=== PATIENT | female | born 1985 | race Caucasian/White ===

== ENCOUNTER 2021-06-15 03:29 | Emergency (ER) | payer OTHER, MEDICAID, SELFPAY ==
--- NOTE | 2021-06-15 03:40 | ED_ITS ---
HPI - URI/Sore Throat General Chief Complaint: Upper Respiratory Symptoms Stated Complaint: cough, sob, fever Time Seen by Provider: 06/15/21 03:39 History of Present Illness HPI Narrative: 36-year-old female smoker with noncontributory medical history presents with her significant other and a chief complaint of various upper respiratory symptoms including runny nose, sneezing, mildly sore throat and hacking cough which is keeping her awake at night. She denies any nausea or vomiting. She has had a subjective fever and body aches. Her significant other at a very brief episode of similar symptoms and was COVID positive. She is not vaccinated. Related Data Previous Rx's Medication Instructions Recorded albuterol sulfate 90 mcg/actuation 2 puff INHALATION Q4H PRN #1 each 06/15/21 breath activated powder inhaler benzonatate 200 mg capsule 200 mg PO BID PRN #20 cap 06/15/21 budesonide 180 mcg/actuation 2 inh INHALATION BID #1 ea 06/15/21 breath activated powder inhaler Allergies Allergy/AdvReac Type Severity Reaction Status Date / Time Penicillins Allergy Verified 06/15/21 03:43 Review of Systems Review of Systems Narrative: GENERAL: See HPI HEENT: See HPI. RESPIRATORY: See HPI CARDIOVASCULAR: Denies chest pain, palpitations, orthopnea, edema, GASTROINTESTINAL: Denies nausea, vomiting, abdominal pain, diarrhea, constipation, melena. : Denies dysuria, frequency, incontinence, hematuria, urinary retention. MUSCULOSKELETAL: denies weakness, joint pain, or bony pain SKIN: Denies rash, skin lesions, or other NEUROLOGIC: Denies weakness, headache, numbness, change in speech, confusion, seizures, incoordination. PSYCHIATRIC: No concerning psychosocial issues. 12 point review of systems is negative except for those stated above Patient History Social History Smoking Status: Current every day smoker Exam Narrative Exam Narrative: GENERAL: [36 year old patient appears stated age. Well-developed patient, in mild distress. Frequent dry hacking cough HEAD: Atraumatic. Normocephalic. EYES: Pupils equal round and reactive. Extraocular motions intact. No scleral icterus. No injection or drainage. ENT: Moist mucous membranes Nose without bleeding, purulent drainage. Throat without erythema, tonsillar hypertrophy or exudate. Airway patent. NECK: Trachea midline. Non tender CARDIOVASCULAR: Regular rate and rhythm without murmurs, gallops, or rubs. RESPIRATORY: Minimal expiratory wheeze, harsh sounding cough, no crackles or rhonchi, no tachypnea, hypoxemia or other suggestions of respiratory distress GASTROINTESTINAL: Abdomen soft, non-tender, nondistended. EXTREMITIES: No edema or joint tenderness. BACK: Nontender without deformity or crepitance. No flank tenderness. NEURO: AOx3. SKIN: No rash or erythema of visible areas Initial Vital Signs Initial Vital Signs: Vital Signs Temperature 97.5 F L 06/15/21 03:41 Pulse Rate 91 H 06/15/21 03:41 Respiratory Rate 18 06/15/21 03:41 Blood Pressure 123/85 06/15/21 03:41 Pulse Oximetry 99 06/15/21 03:41 Course Orders Ordered: ED Orders 06/15/21 03:35 COVID19 -Nasal swab/Pre-Proc Stat Vital Signs Vital signs: Vital Signs - 8 hr 06/15/21 03:41 06/15/21 04:16 Temperature 97.5 F L Pulse Rate 91 H 90 Respiratory Rate 18 18 Blood Pressure 123/85 122/78 Pulse Oximetry 99 99 MDM - URI/Sore Throat Lab Data Labs: Lab Results 06/15/21 Range/Units 03:35 SARS-CoV-2 (PCR) Positive H (Negative) MDM Narrative Medical decision making narrative: Patient with reassuring history and physical exam. She is unvaccinated with positive COVID and a smoker. She is tolerating orals and has no GI complaints. She has no significant respiratory distress, tachypnea, hypoxemia or need for supplemental oxygen. There is no indication for significant workup such as labs, IV and imaging. Return precautions have been discussed and questions have been answered to her apparent satisfaction Discharge Plan Departure Patient Disposition: Home Clinical Impression: COVID-19 Instructions: Coronavirus Disease 2019 Activity Restrictions/Additional Instructions: *You have been diagnosed with [ COVID-19] *What to do: * per recommendations from the CDC and the [facility] Department of Health * stay home except to get medical care. Restrict activities outside your home, except for getting medical care. Do not go to work, school, or public areas. Avoid using public transportation, ride sharing, or taxis. * separate yourself from other people in your home. * call ahead before visiting your doctor * Wear a facemask * Cover your coughs and sneezes * Clean your hands often * Avoid sharing household items * Clean all high-touch services every day * Monitor your symptoms and seek prompt medical attention if your illness is worsening, particularly with difficulty in breathing. You may discontinue your isolation when: 1. You have been fever-free for at least 24 hours without the use of fever reducing medication, AND 2. Your symptoms are getting better, AND 3. At least 5 days have passed since symptoms first appeared 4. If you have fever, continue to stay home until fever resolves Individuals with laboratory confirmed COVID-19 who have not had any symptoms may discontinue home isolation when at least 5 days have passed since the date of their first COVID-19 diagnostic test and have had no subsequent illness You should notifiy any friends and family that have been in close contact *If up to date on COVID Vaccines, then they do not need to quarantine unless symptoms develop. Get tested on day 5 (or sooner if symptoms develop). Take precautions and watch for symptoms until day 10 *If NOT up to date on COVID Vaccines, then CDC recommends quarantine for at least 5 full days. Wear a well fitted mask at home if you must be around others. If they develop symptoms they should get tested. If they remain asymptomatic they should get tested on day 5. They should take precautions and monitor for symptoms until day 10. Prescriptions: New benzonatate 200 mg capsule 200 mg PO BID PRN (Reason: cough) Qty: 20 0RF budesonide 180 mcg/actuation aerosol powdr breath activated 2 inh inhalation BID Qty: 1 0RF albuterol sulfate 90 mcg/actuation aerosol powdr breath activated 2 puff INHALATION Q4H PRN (Reason: shortness of breath or wheezing) Qty: 1 0RF Rx Instructions: administer with spacer
[2021-06-15 03:41] VITALS: BP 123/85; PULSE 91; RESP 18; TEMP 36.4; O2SAT 99; BMI 32.8
[2021-06-15 03:56] LABS: COVID19 -Nasal RAPID POSITIVE (Negative)
[2021-06-15 04:16] VITALS: BP 122/78; PULSE 90; RESP 18; O2SAT 99
== END 2021-06-15 04:16 | disposition home or self-care (01) ==
PROVIDERS: Emergency Provider Emergency Medicine
DX: U07.1 COVID-19 (principal); F17.200 Nicotine dependence, unspecified, uncomplicated
CPT/HCPCS: 87635; 99281; C9803